=== PATIENT | female | born 1975 | race Caucasian/White ===

== ENCOUNTER → 2023-03-31 07:50 | Outpatient (CLI) | payer OTHER, SELFPAY ==
--- NOTE | ~2023-03-31 | US_ITS ---
Limited Abdominal Sonogram: Real-time sonographic imaging of the right upper quadrant was performed. Clinical History: Abdominal pain Findings: The liver appears normal with no evidence of mass lesion or bile duct dilatation. Main por reg vein demonstrates normal direction of flow. The gallbladder is well distended, and appears normal with no evidence of gallstone or wall thickening. The common bile duct measures 3 mm. The visualize d pancreas, aorta, and IVC are unremarkable. Impression: No significant abnormality seen. Reviewed, dictated and finalized at location . Impression: No significant abnormality seen.
== END ==
PROVIDERS: PCP Internal Medicine Geriatric Medicine; Visit Provider Internal Medicine Geriatric Medicine
DX: R10.9 Unspecified abdominal pain (principal)
CPT/HCPCS: 76705